=== PATIENT | male | born 1970 | race Caucasian/White ===

== ENCOUNTER 2018-07-31 07:57 | Outpatient (CLI) | payer OTHER ==
--- NOTE | 2018-07-31 08:58 | ULT ---
ULTRASOUND HEPATIC DOPPLER DUPLEX: Date: 07/31/18 HISTORY: 47-year-old male with chronic hepatitis C. TECHNIQUE: Roy scale ultrasound images of liver and spleen. Color flow and spectral analysis of major blood vessel associated with the liver. FINDINGS: Hepatic size and echogenicity are normal. No focal hepatic mass lesion is identified, but ultrasound is much less sensitive for the detection of such, compared to CT and MRI with and without contrast. Gallbladder wall thickness is normal. No gallstones or sludge. Common duct caliber 3 mm. No splenomegaly. Appropriate portal venous pulsed Doppler waveforms and hepatopetal flow demonstrated in the splenic v ein, main portal vein, left portal vein, and right portal vein. Hepatofugal flow and appropriate pulsed Doppler waveforms, demonstrated in the left, right, and middl e hepatic veins. Hepatic arterial flow with normal pulsatile waveform. IMPRESSION: Normal. POS: [facility]
== END 2018-07-31 07:58 | disposition home or self-care (01) ==
LOC: BICULT 07:57
PROVIDERS: ATTEND Physician Assistant Medical
DX: B18.2 Chronic viral hepatitis C (principal)
CPT/HCPCS: 76705